=== PATIENT | female | born 1940 | race Caucasian/White ===

== ENCOUNTER 2016-09-19 09:10 | Outpatient (CLI) | payer MEDICARE, OTHER ==
[2016-09-19 11:58] LABS: #Eosinphils 0.2 thou/uL (0.0-0.7); #Lymphocytes 1.5 thou/uL (1.20-3.40); #Monocytes 0.3 thou/uL (0.11-0.59); #Neutrophils 3.3 thou/uL (1.40-6.50); %Basophils 0.8 % (0.0-1.0); %Eosinophils 3.4 % (0.0-10.0); %Monocytes 5.1 % (0.0-10.0); %Neutrophils 62.7 % (42.0-75.0); Hemoglobin 12.6 g/dL (12.0-16.0); Mean Corpuscular Hemoglobin 29.7 pg (27.0-31.0); Mean Corpuscular Volume 89.9 fl (81.0-99.0); Mean Platelet Volume 6.1 fL (7.4-10.4); Platelet Count 283 thou/uL (130-400); RBC Distribution Width 12.5 % (11.5-14.5); Red Blood Cell (RBC) Count 4.24 mill/uL (4.20-5.40); White Blood Cell (WBC) Count 5.3 thou/uL (4.8-10.8)
[2016-09-19 12:40] LABS: ALT (SGPT) 12 U/L (8-55); AST (SGOT) 13 U/L (5-34); Alkaline Phosphatase 92 U/L (40-150); Anion Gap 14 mmol/L (10-20); BUN (Urea Nitrogen) 11 mg/dL (9.8-20.1); Bilirubin, Total 0.5 mg/dL (0.2-1.2); Calc. Creatinine Clearance 0 mL/min (70-130); Calcium 9.3 mg/dL (7.8-10.44); Carbon Dioxide 26 mmol/L (23-31); Cardiac Risk 2.4 (Less than 4.5); Chloride 107 mmol/L (98-107); Cholesterol 169 mg/dl (< 200 Desired); Estimated GFR-MDRD 69; Globulin 2.8 g/dL (2.4-3.5); Glucose 93 mg/dL (83-110); HDL Cholesterol 70 mg/dL (>60 Neg Risk); LDL Cholesterol, Calculated 79 mg/dL; Potassium 4.4 mmol/L (3.5-5.1); Protein, Total 6.8 g/dL (6.0-8.3); Sodium 143 mmol/L (136-145); Triglycerides 102 mg/dL (Less than 150)
== END 2016-09-19 09:11 ==
LOC: HPCALD 09:10
PROVIDERS: ATTEND Family Medicine
DX: E78.5 Hyperlipidemia, unspecified (principal); I10 Essential (primary) hypertension
CPT/HCPCS: 36415; 80053; 80061; 85025

== ENCOUNTER 2019-10-22 21:09 | Emergency (ER) | payer MEDICARE, OTHER | END 2019-10-22 21:55 | disposition home or self-care (01) | LOC: BURERS 21:09 | DX: S61.012A Laceration without foreign body of left thumb without damage to nail, initial encounter (principal); E78.5 Hyperlipidemia, unspecified; E78.00 Pure hypercholesterolemia, unspecified; W26.0XXA Contact with knife, initial encounter | CPT/HCPCS: 99282 ==

== ENCOUNTER 2020-02-03 09:35 | Emergency (ER) | payer MEDICARE, OTHER ==
[2020-02-03 10:34] LABS: #Lymphocytes 0.5 thou/uL (1.20-3.40); #Monocytes 0.3 thou/uL (0.11-0.59); #Neutrophils 8.8 thou/uL (1.40-6.50); %Basophils 0.2 % (0.0-1.0); %Lymphocytes 5.6 % (21.0-51.0); %Monocytes 2.7 % (0.0-10.0); %Neutrophils 91.5 % (42.0-75.0); Hemoglobin 12.1 g/dL (12.0-16.0); Mean Corpuscular HGB CONC 32.2 g/dL (32.0-36.0); Mean Corpuscular Hemoglobin 28.6 pg (27.0-31.0); Mean Corpuscular Volume 88.8 fL (78.0-98.0); Mean Platelet Volume 6.7 fL (7.4-10.4); Platelet Count 253 thou/uL (130-400); RBC Distribution Width 11.6 % (11.5-14.5); Red Blood Cell (RBC) Count 4.23 mill/uL (4.20-5.40); White Blood Cell (WBC) Count 9.7 thou/uL (4.8-10.8)
[2020-02-03] MEDS ORDERED: Famotidine In NaCl 20 mg/50 ml Premix Bag ONE (10:37)
[2020-02-03] MEDS ORDERED: Ondansetron PF 4 MG/2 ML Vial ONE (10:37)
[2020-02-03 10:55] LABS: ALT (SGPT) 41 U/L (8-55); AST (SGOT) 58 U/L (5-34); Albumin 3.5 g/dL (3.4-4.8); Alkaline Phosphatase 62 U/L (40-110); Anion Gap 15 mmol/L (10-20); BUN (Urea Nitrogen) 12 mg/dL (9.8-20.1); Bilirubin, Total 0.5 mg/dL (0.2-1.2); Calc. Creatinine Clearance 0 mL/min (70-130); Calcium 8.8 mg/dL (7.8-10.44); Carbon Dioxide 27 mmol/L (23-31); Chloride 100 mmol/L (98-107); Estimated GFR-MDRD 63; Globulin 3.6 g/dL (2.4-3.5); Glucose 145 mg/dL (83-110); Protein, Total 7.1 g/dL (6.0-8.3); Sodium 139 mmol/L (136-145)
[2020-02-04 11:11] LABS: SARS-CoV-2 MS2 Positive; SARS-CoV-2 N Gene Positive; SARS-CoV-2 S Gene Positive; SARS-CoV-2 by NAA DETECTED (NotDetected); SARS-CoV-2 orf1ab Positive
== END 2020-02-03 11:51 | disposition home or self-care (01) ==
LOC: BURERS 09:35
DX: U07.1 COVID-19 (principal); A08.39 Other viral enteritis; E86.9 Volume depletion, unspecified; E78.5 Hyperlipidemia, unspecified; E78.00 Pure hypercholesterolemia, unspecified
CPT/HCPCS: 80053; 85025; 96365; 96375; 99284; U0003; 87635; J2405

== ENCOUNTER 2021-09-12 10:21 | Outpatient (CLI) | payer MEDICARE ==
[2021-09-12 10:48] LABS: #Eosinphils 0.1 thou/uL (0.0-0.7); #Lymphocytes 1.6 thou/uL (1.20-3.40); #Monocytes 0.3 thou/uL (0.11-0.59); #Neutrophils 4.2 thou/uL (1.40-6.50); %Basophils 0.6 % (0.0-1.0); %Eosinophils 1.6 % (0.0-10.0); %Lymphocytes 25.4 % (21.0-51.0); %Monocytes 4.2 % (0.0-10.0); %Neutrophils 68.2 % (42.0-75.0); Hemoglobin 12.7 g/dL (12.0-16.0); Mean Corpuscular HGB CONC 33.9 g/dL (32.0-36.0); Mean Corpuscular Hemoglobin 30.4 pg (27.0-31.0); Mean Corpuscular Volume 89.7 fL (78.0-98.0); Mean Platelet Volume 6.2 fL (7.4-10.4); Platelet Count 325 thou/uL (130-400); RBC Distribution Width 12.8 % (11.5-14.5); Red Blood Cell (RBC) Count 4.19 mill/uL (4.20-5.40); White Blood Cell (WBC) Count 6.2 thou/uL (4.8-10.8)
[2021-09-12 11:03] LABS: ALT (SGPT) 12 U/L (8-55); AST (SGOT) 14 U/L (5-34); Albumin 4.2 g/dL (3.4-4.8); Alkaline Phosphatase 99 U/L (40-110); Anion Gap 15 mmol/L (10-20); BUN (Urea Nitrogen) 14 mg/dL (9.8-20.1); Bilirubin, Total 0.6 mg/dL (0.2-1.2); Calc. Creatinine Clearance 0 mL/min (70-130); Calcium 9.3 mg/dL (7.8-10.44); Carbon Dioxide 26 mmol/L (23-31); Chloride 105 mmol/L (98-107); Globulin 3.2 g/dL (2.4-3.5); Glucose 99 mg/dL (83-110); Potassium 4.5 mmol/L (3.5-5.1); Protein, Total 7.4 g/dL (5.8-8.1); Sodium 141 mmol/L (136-145)
[2021-09-12 16:24] LABS: Hemoglobin A1c 5.4 % (4.0-6.0)
[2021-09-12 16:50] LABS: Hep C IgG Ab Non-Reactive (NonReactive); Hep C Index 0.13 S/CO (0-0.79)
[2021-09-13 09:36] LABS: Thyroid Stimulating Hormone 2.6858 uIU/mL (0.35-4.94)
== END 2021-09-12 10:22 | disposition home or self-care (01) ==
LOC: BUREKG 10:21
PROVIDERS: ATTEND Family Medicine
DX: Z01.818 Encounter for other preprocedural examination (principal); Z11.59 Encounter for screening for other viral diseases; I10 Essential (primary) hypertension; Z79.899 Other long term (current) drug therapy
CPT/HCPCS: 36415; 71046; 80053; 83036; 84443; 85025; 86803; 93005; 93010

== ENCOUNTER 2021-10-16 20:33 | Inpatient (IN) | payer MEDICARE ==
[2021-10-16] MEDS ORDERED: Polyethylene Glycol 3350 17 GM Packet PO PRN (21:17)
[2021-10-16] MEDS ORDERED: Cepastat Lozenges 1 LOZ PO PRN (21:17)
[2021-10-16] MEDS ORDERED: Mag-Al Plus 1200 MG/1200 MG/120 MG/30 ML UDCUP PO PRN (21:17)
[2021-10-16] MEDS ORDERED: Acetaminophen 325 MG TAB PO PRN (21:17)
[2021-10-16] MEDS ORDERED: Ondansetron ODT 4 MG TAB PO PRN (21:17)
[2021-10-16 21:20] VITALS: BMI 30.6
[2021-10-16] MEDS ORDERED: Methocarbamol 500 MG TAB ONE (22:43)
[2021-10-16] MEDS: Methocarbamol 500 MG TAB PO SCH (22:47)
[2021-10-16] MEDS: HYDROcodone/Acetaminophen 5/325 mg Tablet PO PRN (22:47)
[2021-10-17] MEDS ORDERED: HYDROcodone/Acetaminophen 5/325 mg Tablet PO PRN (03:21)
[2021-10-17] MEDS ORDERED: HYDROcodone/Acetaminophen 5/325 mg Tablet PO SCH (03:30)
[2021-10-17] MEDS: HYDROcodone/Acetaminophen 5/325 mg Tablet PO PRN ×6 (03:54→22:05)
[2021-10-17] MEDS: Aspirin 325 mg Enteric Coated Tablet PO SCH (09:41)
[2021-10-17] MEDS: Ascorbic Acid 500 mg Chewable Tablet PO SCH ×2 (09:41→09:44)
[2021-10-17] MEDS: Famotidine 20 MG TAB PO SCH (09:41)
[2021-10-17] MEDS: Ferrous Sulfate 325 MG TAB PO SCH (09:43)
[2021-10-17] MEDS: Cholecalciferol 1,000 UNITS (25 MCG) TAB PO SCH (09:43)
[2021-10-17] MEDS: Zinc Sulfate 220 MG CAP PO SCH (09:44)
[2021-10-17] MEDS: Polyethylene Glycol 3350 17 GM Packet PO SCH (09:51)
[2021-10-17] MEDS: Methocarbamol 500 MG TAB PO SCH ×3 (10:01→20:15)
[2021-10-17] MEDS ORDERED: Methocarbamol 500 MG TAB ONE (20:07)
[2021-10-17] MEDS: Atorvastatin Calcium 40 MG TAB PO SCH (20:13)
[2021-10-17] MEDS: Gabapentin 100 MG CAP PO SCH (20:14)
[2021-10-18] MEDS: HYDROcodone/Acetaminophen 5/325 mg Tablet PO PRN ×3 (04:38→20:46)
[2021-10-18] MEDS ORDERED: Methocarbamol 500 MG TAB ONE ×2 (08:01→14:43)
[2021-10-18] MEDS: Aspirin 325 mg Enteric Coated Tablet PO SCH (08:10)
[2021-10-18] MEDS: Polyethylene Glycol 3350 17 GM Packet PO SCH (08:10)
[2021-10-18] MEDS: Ferrous Sulfate 325 MG TAB PO SCH (08:11)
[2021-10-18] MEDS: Famotidine 20 MG TAB PO SCH (08:11)
[2021-10-18] MEDS: Cholecalciferol 1,000 UNITS (25 MCG) TAB PO SCH (08:11)
[2021-10-18] MEDS: Ascorbic Acid 500 mg Chewable Tablet PO SCH (08:12)
[2021-10-18] MEDS: Methocarbamol 500 MG TAB PO SCH ×3 (08:12→20:48)
[2021-10-18] MEDS: Zinc Sulfate 220 MG CAP PO SCH (08:14)
[2021-10-18] MEDS: Atorvastatin Calcium 40 MG TAB PO SCH (20:47)
[2021-10-18] MEDS: Gabapentin 100 MG CAP PO SCH (20:49)
[2021-10-19] MEDS: HYDROcodone/Acetaminophen 5/325 mg Tablet PO PRN ×2 (03:29→09:46)
[2021-10-19] MEDS: Polyethylene Glycol 3350 17 GM Packet PO SCH (09:46)
[2021-10-19] MEDS: Ascorbic Acid 500 mg Chewable Tablet PO SCH (09:48)
[2021-10-19] MEDS: Aspirin 325 mg Enteric Coated Tablet PO SCH (09:48)
[2021-10-19] MEDS: Zinc Sulfate 220 MG CAP PO SCH (09:48)
[2021-10-19] MEDS: Ferrous Sulfate 325 MG TAB PO SCH (09:49)
[2021-10-19] MEDS: Cholecalciferol 1,000 UNITS (25 MCG) TAB PO SCH (09:49)
[2021-10-19] MEDS: Methocarbamol 500 MG TAB PO SCH (09:50)
[2021-10-19] MEDS: Famotidine 20 MG TAB PO SCH (09:51)
[2021-10-19 13:12] VITALS: BP 120/73; TEMP 98.4
== END 2021-10-19 13:35 | disposition home or self-care (01) | DRG 561 ==
LOC: BURMED 20:33
PROVIDERS: ADMIT Family Medicine; ATTEND Family Medicine
DX: Z47.1 Aftercare following joint replacement surgery (principal); Z20.822 Contact with and (suspected) exposure to COVID-19; I10 Essential (primary) hypertension; E78.5 Hyperlipidemia, unspecified; G89.29 Other chronic pain; M54.9 Dorsalgia, unspecified; M54.16 Radiculopathy, lumbar region; Z98.1 Arthrodesis status; Z88.6 Allergy status to analgesic agent; Z88.5 Allergy status to narcotic agent; Z88.8 Allergy status to other drugs, medicaments and biological substances
CPT/HCPCS: Q0162; U0003; U0005

== ENCOUNTER 2023-01-03 10:14 | Outpatient (CLI) | payer MEDICARE | END 2023-01-03 10:15 | disposition home or self-care (01) | LOC: BURRAD 10:14 | PROVIDERS: ATTEND Family Medicine | DX: M25.522 Pain in left elbow (principal); M25.422 Effusion, left elbow; M19.022 Primary osteoarthritis, left elbow ==